=== PATIENT | female | born 1980 | race Caucasian/White ===

== ENCOUNTER 2023-10-12 16:39 | Emergency (ER) | payer OTHER, SELFPAY ==
--- NOTE | ~2023-10-12 | US_ITS ---
EXAMINATION: US PELVIS CLINICAL INFORMATION: Pelvic pain. IUD COMPARISON: Pelvic ultrasound April 29, 2015 TECHNIQUE: Ultrasound of the pelvis is performed using both transabdominal and transvaginal transducers along with Doppler. Transvaginal imaging is performed due to inadequate visualization transabdominally. FINDINGS: Uterus: The uterus is anteverted and measures 9.2 x 4.1 x 5.7 cm. The IUD is in the endometrial cavity but is low-lying position in the mid to lower uterine body. The uterus is smooth in contour and has normal myometrial echogenicity. No visible fibroid. Adnexa: The left ovary is not visualized. The right ovary is normal. There is a 1.6 cm dominant follicle in the right ovary. Right ovary measures 3.1 x 2.1 x 1.8 cm. Volume 6.1 mL. Color Doppler demonstrates vascular flow in the right ovary. US/US pelvic and transvaginal IMPRESSION: The IUD is in the endometrial cavity but is low-lying position in the mid to lower uterine body.
[2023-10-12 16:40] VITALS: BP 141/87; PULSE 103; RESP 18; TEMP 37.2; O2SAT 100; BMI 29.1
--- NOTE | 2023-10-12 16:40 | ED.FEMALEGU ---
HPI - Female Genitourinary General Chief complaint: Urogenital-Female Stated complaint: Displaced IUD Time Seen by Provider: 10/12/23 17:38 Source: patient Mode of arrival: ambulatory Limitations: no limitations History of Present Illness HPI Narrative: Patient is a 42-year-old female presents emergency department for evaluation of intermittent sharp pelvic pain that typically last a few seconds, a sensation rectal pressure also intermittent lasting a few seconds. She has been experiencing intermittent lower abdominal the past few days. She admits to intermittent clear discharge from the vagina. She denies urinary symptoms. She saw her siebel solution architect provider yesterday, they were unable to visualize IUD strings. She has an appointment for an ultrasound an appointment to follow-up with siebel solution architect next Sunday. She reviewed her results in her portal through [employer], her testing for chlamydia gonorrhea were negative, Trichomonas was negative, yeast was negative, bacterial vaginosis/Gardnerella is pending at this time. She reports a history of IUD in bedded within the chou of the uterus in the past but was able to be manually removed. Reports her current IUD; Mirena was placed under ultrasound guidance in 2019 and has not had any issues since then. She does admit to a history of recurrent bacterial vaginosis infection. Related Data Allergies Allergy/AdvReac Type Severity Reaction Status Date / Time latex Allergy Hives Verified 10/12/23 16:44 [facility] Social History Social History Advance Directives: No Advance Directives Information Provided: No Do you have a plan to hurt others: No Plan Physical Exam Vital Signs: Vital Signs: Last Vital Signs Temp 98.8 F 10/12/23 18:07 Pulse 83 10/12/23 18:07 Resp 16 10/12/23 18:07 BP 133/79 10/12/23 18:07 Pulse Ox 98 10/12/23 18:07 O2 Del Method Room Air 10/12/23 18:07 BMI result Body Mass Index 29.1 Appearance: Alert.?Oriented to person, place and time. No acute distress.?Normal affect. Eyes: Pupils equal, round and reactive to light.? ENT: Pharynx normal.?? Neck: Normal inspection.? Neck supple.?? CVS: Heart sounds normal. Normal heart rate and rhythm.? Pulses normal.?? Respiratory: No respiratory distress.? Lung sounds clear to auscultation bilaterally?? Abdomen: Soft and non-tender. Normoactive bowel sounds. Skin: Skin warm and dry.? Normal skin color.? Genitourinary:? Supervised by ED industrial manufacturing technician; Miranda. Normal external appearance of urethra.? No lesions/lacerations or discharge or tenderness noted. No Bartholin cyst noted.? Speculum exam: normal appearance/palpation of vagina normal. No abnormal vaginal discharge, swelling, erythema, laceratons, or active bleeding noted.?No foreign bodies noted.? No vaginal tenderness noted.? Normal appearance of cervix. Normal palpation of cervix.? Cervical os is closed.? Unable to visualize IUD strings. Erythema to the cervix at 6 o'clock - 9 o'clock, posterior vault with mucopurulent discharge, cervix is not friable.?? No cervical motion tenderness noted.? Negative chandelier sign.? Normal bimanual exam.? Uterine size normal. Uterine consistency normal.? Bladder normal to palpation. Normal adnexa. Normal rectovaginal exam. Extremities: No lower extremity edema.? No calf ttp? Neuro: Moves all extremities spontaneously. Sensation intact bilaterally. CN II-XII intact. No focal neuro deficits. Ambulates with normal steady gait. Course Course Course Narrative: This is a Rapid Medical Examination (RME) performed by Howard Eckert PA-C in triage. Full HPI, ROS, assessment and treatment plan per primary provider in the Main ED. 42 yo female here w/ sharp pelvic pain, lower abdominal cramping, and rectal pressure x3 days. Saw OBGYN for pelvic exam yesterday - CLAIMS SPECIALIST could not visualize IUD strings. she was called with negative STD work up today and advised to come to the ED as patient's patient was worsening. she does have outpatient US scheduled for next week. + exam deferred d/t privacy Plan: labs, pelvic US Reevaluation(s) Reevaluation #1: [id number]-- Pelvic US shows: US pelvic and transvaginal IMPRESSION: The IUD is in the endometrial cavity but is low-lying position in the mid to lower uterine body. Patient informed of imaging results. Reiterated the importance of continuing flagyl. she has f/u appointment with OBGYN this week. Patient has remained stable throughout ED visit today. Discussed worrisome signs and symptoms and when to return to the ED. All questions answered at this time. Patient is agreeable with disposition and stable for discharge. Medical Decision Making Medical Decision Making [facility] Narrative: Patient is a 42-year-old female who presents emergency department for evaluation of intermittent pelvic pain and concerns for displaced IUD as per HPI. On examination there is an area of erythema to her cervix and mucopurulent discharge as per physical exam portion of this note, she has no cervical motion tenderness on examination, clinically have lower suspicion for PID, but concern for cervicitis. In setting of her negative STI testing, and no expressed concern for STIs, alternative etiologies may be secondary to bacterial vaginosis which has not yet resulted. Given her persistent symptoms, and the upcoming weekend where she may be unable to get in touch with her siebel solution architect, would recommend prophylactic treatment for bacterial vaginosis this time include a course of metronidazole. She already has an outpatient appointment for follow-up scheduled with her siebel solution architect. Unfortunately, on examination I am unable to visualize her IUD strings, her pelvic ultrasound is pending at this time for further evaluation of placement. I will sign out patient to my night colleague Howard FIGUEROA pending ultrasound results Differential Diagnosis Differential Diagnoses: The differential diagnosis associated with the presentation includes (See narrative above) Admission/Observation Consideration of admission/observation: Escalation of care including admission/observation considered Lab Data [facility] Lab Attestation statement: I reviewed the patient's lab results. CBC is without leukocytosis anemia or thrombocytopenia. No electrolyte derangement, no CHEYANNE. Urinalysis without evidence of infection or microscopic hematuria. HCG negative. 10/12/23 18:12 10/12/23 18:12 Labs: Lab Results 10/12/23 Range/Units 18:12 WBC 8.6 (4.8-10.8) X10*3/uL RBC 4.00 L (4.20-5.50) X10*6/uL Hgb 12.9 (12.0-16.0) g/dl Hct 37.0 (37.0-47.0) % MCV 92.5 (80.0-98.0) fL MCH 32.3 (27.0-33.0) pg MCHC 34.9 (31.0-35.0) g/dl RDW 12.3 (11.0-16.0) % Plt Count 381 (160-400) X10*3/uL MPV 9.7 (9.4-12.3) fL Immature Gran % (Auto) 0.5 H (0.0-0.4) % Neut % (Auto) 56.1 (45-73) % Lymph % (Auto) 33.5 (20-40) % [place] % (Auto) 6.2 (2-11) % Eos % (Auto) 2.8 (0-4) % Baso % (Auto) 0.9 (0-2) % Lymph # (Auto) 2.9 (1.2-4.9) X10*3/uL [place] # (Auto) 0.5 (0.1-1.2) X10*3/uL Eos # (Auto) 0.2 (0.0-0.4) X10*3/uL Baso # (Auto) 0.1 (0.0-0.2) X10*3/uL Abs Immat Gran (auto) 0.04 H (0.00-0.03) X10*3/uL Absolute Neuts (auto) 4.8 (2.0-8.3) x10*3/uL Absolute Nucleated RBC 0.000 (0.0-0.012) X10*3/uL Nucleated RBC % (auto) 0.0 (0.0-0.2) /100WBC Sodium 138 (135-145) mmol/L Potassium 3.6 (3.3-5.1) mmol/L Chloride 104 (96-108) mmol/L Carbon Dioxide 25 (22-29) mmol/L Anion Gap 13 (12-20) BUN 9 (9-16) mg/dL Creatinine 0.64 (0.5-1.4) mg/dL Estim Creat Clear Calc 114.9 Estimated GFR > 60 Random Glucose 170 H (60-115) mg/dL Calcium 9.1 (8.4-10.2) mg/dL Total Bilirubin 0.6 (0.0-1.0) mg/dL AST 11 (5-31) U/L ALT 17 (0-31) U/L Alkaline Phosphatase 52 (39-117) U/L Total Protein 6.7 (6.5-8.0) g/dL Albumin 3.8 (3.5-5.0) g/dL Urine Color Yellow Urine Appearance Clear Urine pH 6.0 (5.0-9.0) Ur Specific [place] 1.025 (1.005-1.025) Urine Protein Negative (Neg-Trace) mg/dL Urine Glucose (UA) 500 H (Negative) mg/dL Urine Ketones Trace (Negative) mg/dL Urine Blood Negative (Negative) Urine Nitrite Negative (Negative) Ur Leukocyte Esterase Negative (Negative) Urine Test NEGATIVE (NEGATIVE) Radiology Impression Discussion of test interpretation with radiology: I have reviewed the radiologist's reading. External Record Review External record reviewed: Prior outpatient labs (Reviewed from her patient portal through [facility]) Prescription Management I considered prescription management with: Antibiotic I recommended to patient that she began a course of metronidazole 500 mg twice daily for 7 days, she states that she has 5 tablets of metronidazole 500 mg available to her as she has not completed her entire full courses in the past, she did not want a new prescription at this time, she is going to take the 5 tablets starting to tablet Sunday 2 tablets Sunday and she will follow-up with siebel solution architect office Sunday morning Discharge Plan Discharge Clinical Impression: Cervicitis Patient Disposition: Home, Self-Care Instructions: Cervicitis (ED) Additional Instructions: As discussed, based on your outpatient testing results to [place] in your symptoms and physical exam today, I recommended that you begin a course of metronidazole/Flagyl for treatment of possible bacterial vaginosis. You have the metronidazole 500 mg tablets available to please take the 1st dose ton followed by 2 doses tomorrow and 2 doses Sunday, and follow-up closely with your siebel solution architect doctor on Sunday. Your ultrasound today shows: US pelvic and transvaginal IMPRESSION: The IUD is in the endometrial cavity but is low-lying position in the mid to lower uterine body. Print Language: Persian
[2023-10-12 18:07] VITALS: BP 133/79; PULSE 83; RESP 16; TEMP 37.1; O2SAT 98
[2023-10-12 18:17] LABS: MANUAL DIFF FLAG NO
--- NOTE | 2023-10-12 18:18 | MHC.EDTECH ---
Patient blood drawn and urine sample collected all sent to lab ,vitals taken .
[2023-10-12 18:19] LABS: Appearance Urine Clear; Basophils Absolute Auto 0.1 X10*3/uL (0.0-0.2); Basophils Percent Auto 0.9 % (0-2); Color Urine Yellow; Eosinophils Absolute Auto 0.2 X10*3/uL (0.0-0.4); Eosinophils Percent Auto 2.8 % (0-4); Glucose Urine UA 500 mg/dL (Negative); Hemoglobin 12.9 g/dl (12.0-16.0); Imm Gran Abs Auto 0.04 X10*3/uL (0.00-0.03); Imm Gran Pct Auto 0.5 % (0.0-0.4); Leukocyte Esterase Urine Negative (Negative); Lymphocytes Absolute Auto 2.9 X10*3/uL (1.2-4.9); Lymphocytes Percent Auto 33.5 % (20-40); Mean Corpuscular HGB Conc 34.9 g/dl (31.0-35.0); Mean Corpuscular Hemoglobin 32.3 pg (27.0-33.0); Mean Corpuscular Volume 92.5 fL (80.0-98.0); Mean Platelet Volume 9.7 fL (9.4-12.3); Monocytes Absolute Auto 0.5 X10*3/uL (0.1-1.2); Monocytes Percent Auto 6.2 % (2-11); Neutrophils Absolute Auto 4.8 x10*3/uL (2.0-8.3); Neutrophils Percent Auto 56.1 % (45-73); Nitrite Urine Negative (Negative); Platelet Count 381 X10*3/uL (160-400); Red Cell Distribution Width 12.3 % (11.0-16.0); Specific Gravity - Urine 1.025 (1.005-1.025); Urine Blood Negative (Negative); Urine Ketones Trace mg/dL (Negative); Urine Protein Negative (Neg-Trace); White Blood Count 8.6 X10*3/uL (4.8-10.8)
[2023-10-12 18:20] LABS: UPreg QC Valid YES; Urine Pregnancy NEGATIVE (NEGATIVE)
[2023-10-12 18:32] LABS: Alanine Aminotransferase 17 U/L (0-31); Albumin Level 3.8 g/dL (3.5-5.0); Alkaline Phosphatase 52 U/L (39-117); Anion Gap 13 (12-20); Aspartate Amino Transferase 11 U/L (5-31); Bilirubin Total 0.6 mg/dL (0.0-1.0); Blood Urea Nitrogen 9 mg/dL (9-16); Calcium 9.1 mg/dL (8.4-10.2); Carbon Dioxide 25 mmol/L (22-29); Chloride 104 mmol/L (96-108); Creatinine Clr Calc Pharmacy 114.9; Estimated Glomerular Filt Rate > 60; Glucose Random 170 mg/dL (60-115); Potassium 3.6 mmol/L (3.3-5.1); Sodium 138 mmol/L (135-145); Total Protein 6.7 g/dL (6.5-8.0)
--- NOTE | 2023-10-12 18:42 | MHC.EDTECH ---
This Pct set up and Insulation Cupola Operator Provider during Pt Pelvic exam .
[2023-10-12 20:55] VITALS: BP 147/82; PULSE 91; RESP 16; TEMP 36.8; O2SAT 98
[2023-10-12 21:28] VITALS: BP 147/82; PULSE 91; RESP 16; TEMP 36.8; O2SAT 98
== END 2023-10-12 21:29 | disposition home or self-care (01) ==
PROVIDERS: Physician Assistant Medical; Emergency Provider Internal Medicine; PCP Internal Medicine
DX: N72 Inflammatory disease of cervix uteri (principal); R10.2 Pelvic and perineal pain
CPT/HCPCS: 36415; 76830; 76856; 80053; 81003; 81025; 85025; 99283; 99284